=== PATIENT | female | born 1995 | race Caucasian/White ===

== ENCOUNTER 2017-04-25 19:37 | Emergency (ER) | payer OTHER ==
[~2017-04-25] VITALS: Ht 157.5 cm; Wt 57.6 kg
[2017-04-25 23:26] VITALS: BP 120/81
== END 2017-04-26 00:18 | disposition home or self-care (01) ==
LOC: ER 19:37
DX: S62.316A Displaced fracture of base of fifth metacarpal bone, right hand, initial encounter for closed fracture (principal); Z88.1 Allergy status to other antibiotic agents; Z88.8 Allergy status to other drugs, medicaments and biological substances; W22.8XXA Striking against or struck by other objects, initial encounter; Y93.89 Activity, other specified; Y99.8 Other external cause status; Y92.89 Other specified places as the place of occurrence of the external cause
CPT/HCPCS: 29125; 73130

== ENCOUNTER 2023-10-24 17:47 | Emergency (ER) | payer MEDICAID, OTHER ==
[~2023-10-24] VITALS: Ht 157.5 cm; Wt 47.0 kg
[2023-10-24 18:08] VITALS: BP 140/100; PULSE 88; RESP 18; TEMP 98.7; O2SAT 100
[2023-10-24] MEDS: SILVER SULFADIAZINE 1 % TOPICAL CREAM 50GM TOP ONE (20:40)
[2023-10-24] MEDS: KETOROLAC TROMETH 60MG/2ML VIAL IM ONE (20:41)
== END 2023-10-24 21:25 | disposition home or self-care (01) ==
LOC: ER 17:47
DX: T23.202A Burn of second degree of left hand, unspecified site, initial encounter (principal); T23.232A Burn of second degree of multiple left fingers (nail), not including thumb, initial encounter; T31.0 Burns involving less than 10% of body surface; Z88.1 Allergy status to other antibiotic agents; Z88.8 Allergy status to other drugs, medicaments and biological substances; X10.2XXA Contact with fats and cooking oils, initial encounter; Y93.89 Activity, other specified; Y92.89 Other specified places as the place of occurrence of the external cause; Y99.8 Other external cause status
CPT/HCPCS: 16000; 96372; 99283; J1885

== ENCOUNTER 2024-10-14 20:31 | Emergency (ER) | payer MEDICAID ==
[~2024-10-14] VITALS: Ht 157.5 cm; Wt 47.0 kg
[2024-10-14 20:32] VITALS: BP 127/90; PULSE 87; RESP 18; TEMP 98.1; O2SAT 100
--- NOTE | 2024-10-14 20:55 | ED.PDOC ---
Eye-HPI HPI Comments 29-year-old female presents to the ED chief complaint left eye pain and he adache. Patient states symptoms started one day ago. Reports no related symptoms. Denies vision changes, numbness, weakness, fever, chills, chest pain, shortness of breath, eye injury, or abdominal pain notes no nausea or vomiting. 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 Hx Family History Family History: Reviewed,noncontributory to illness, Unknown Social History Smoker: Non-Smoker Alcohol: Denies ETOH Use Drugs: Denies Drug Use Lives In: Home All Other Systems: Reviewed and Negative Physical Exam General Appearance: No Apparent Distress, Normal HEENT: Normal ENT Inspection, Pharynx Normal, TMs Normal Neck: Full Range of Motion, Non-Tender Respiratory: Lungs Clear, No Respiratory Distress, Normal Breath Sounds Cardiovascular: No Edema, No JVD, No Murmur, No Gallop, Normal Peripheral Pulses, Regular Rate/Rhythm Breast Exam: Deferred Gastrointestinal: Non Tender, Soft Genitalia: Deferred Pelvic: Deferred Rectal: Deferred Extremities: Normal range of motion, No pedal edema Musculoskeletal : Apperance: Normal Neurologic: Alert, No Motor Deficits, Normal Affect, Normal Mood, No Sensory Deficits Cerebellar Function: Normal Reflexes: NOT DONE Skin: Dry, Normal Color, Warm Lymphatic: No Adenopathy Was a procedure done? Was a procedure done?: No EENT DIFF Eye: Chalazion, Conjunctivitis, Allergic, Bacterial, Chlamydial, Corneal Ulceration, Foreign Body-Conjunctiva, Foreign Body-Corneal, Foreign Body- Intraocular, Foreign Body-Lid, Glaucoma, Globe Rupture, Hordeolum (stye), Iritis/Uveitis, Orbital Cellulits, Periorbital Cellulits X-Ray, Labs, Meds, VS Vital Signs Date Time Temp Pulse Resp B/P (MAP) Pulse Ox O2 Delivery O2 Flow Rate FiO2 10/14/24 20:32 98.1 87 18 127/90 100 98.1 X-Ray, Labs, Meds, VS Comment Patient given Toradol 60 mg IM Decadron 10 mg IM reports improvement in pain requesting discharge at this time. Advised to follow up with Optometry and PCP within 2-3 days as necessary ER return precautions given patient indicates understanding agrees with discharge plan of care. Time of 1ST Reevaluation: 20:54 Reevaluation 1ST: Unchanged Time of 2ND Reevaluation: 21:17 Reevaluation 2ND: Improved Patient Education/Counseling: Diagnosis, Treatment, Prognosis, Need For Follow Up Family Education/Counseling: No Family Present SEPSIS Sepsis Screen Date sepsis recognized/suspect: Oct 14, 2024 Time Sepsis recognized/suspect: 2035 Recent Procedure: No On Antibiotic Therapy: No Respiratory Rate >20: No Heart Rate >90: No Temp<36 C (96.8 F) or >38.3 C: No SBP <90 or MAP <65 mmHG: No New Acute Mental Status Change: No Is the patient on CPAP, BIPAP,: No Vital Signs Date Time Temp Pulse Resp B/P (MAP) Pulse Ox O2 Delivery O2 Flow Rate FiO2 10/14/24 20:32 98.1 87 18 127/90 100 98.1 Departure 1 Departure Time of Disposition: 21:17 Impression: Primary Impression: Ocular migraine Disposition: HOME / SELF CARE / HOMELESS Condition: Stable Discharged With: Self Critical Care Note Critical Care Time?: No Stability Stability form required: KERA Gambino Oct 14, 2024 20:55
[2024-10-14] MEDS: KETOROLAC TROMETH 60MG/2ML VIAL IM ONE (21:29)
== END 2024-10-14 21:40 | disposition home or self-care (01) ==
LOC: ER 20:31
DX: G43.809 Other migraine, not intractable, without status migrainosus (principal); Z88.1 Allergy status to other antibiotic agents; Z88.0 Allergy status to penicillin
CPT/HCPCS: 96372; 99284; J1100; J1885